=== PATIENT | female | born 1980 | race Asian ===

== ENCOUNTER → 2016-07-17 | Outpatient (CLI) | payer BC | END | disposition home or self-care (01) | LOC: US 07-16 08:00 | DX: E04.9 Nontoxic goiter, unspecified (principal); E04.1 Nontoxic single thyroid nodule ==

== ENCOUNTER → 2016-10-11 | Outpatient (CLI) | payer BC | END | disposition home or self-care (01) | LOC: US 08:30 | DX: B18.1 Chronic viral hepatitis B without delta-agent (principal); R94.5 Abnormal results of liver function studies ==

== ENCOUNTER → 2017-01-14 | Outpatient (CLI) | payer OTHER ==
[2017-01-14 10:42] LABS: HEMOGLOBIN A1c 5.8 % (4.8-5.6)
[2017-01-14 10:52] LABS: ALBUMIN 4.1 gm/dl (3.1-4.5); ALKALINE PHOSPHATASE 93 U/L (45-117); BILIRUBIN, DIRECT < 0.1 mg/dL (0.0-0.2); BILIRUBIN, TOTAL 0.4 mg/dl (0.2-1.0); SGOT/AST 53 IU/L (3-35); SGPT/ALT 109 U/L (12-78); TOTAL PROTEIN 8.6 gm/dL (6.4-8.2)
[2017-01-15 08:12] LABS: HIV 1+2 AB + HIV1 P24 AG Non Reactive (Non Reactive)
[2017-01-15 16:12] LABS: AB TO HEPATITIS Be AG 006635 Negative (Negative)
[2017-01-15 18:05] LABS: LOG10 HBV 4.505 (.)
== END | disposition home or self-care (01) ==
LOC: LAB 09:20
PROVIDERS: Family Medicine
DX: B19.10 Unspecified viral hepatitis B without hepatic coma (principal); B18.1 Chronic viral hepatitis B without delta-agent; R73.9 Hyperglycemia, unspecified

== ENCOUNTER → 2017-06-05 | Outpatient (CLI) | payer OTHER ==
[2017-06-05 11:12] LABS: BASO % 0.4 % (0.0-1.0); EOS # 0.1 10*3/uL (0.0-0.4); EOS % 1.4 % (1.0-4.0); HEMATOCRIT 43.3 % (37.0-47.0); HEMOGLOBIN 14.7 g/dl (12.0-16.0); LYMPH # 2.3 10*3/uL (1.3-4.4); LYMPH % 46.3 % (27.0-41.0); MEAN CELL VOLUME 86.6 fl (81.0-99.0); MEAN CORPUSCULAR HGB 29.4 pg (27.0-31.0); MEAN CORPUSCULAR HGB CONC 33.9 g/dl (33.0-37.0); MEAN PLATELET VOLUME 10.1 fl (9.6-12.3); MONO # 0.4 10*3/uL (0.1-1.0); MONO % 8.5 % (3.0-9.0); NEUT # 2.2 10*3/uL (2.3-7.9); NEUT % 43.2 % (47.0-73.0); PLATELET COUNT AUTOMATED 306 10*3/uL (130-400); RED CELL DISTRI WIDTH 12.9 % (0-14.5); WHITE BLOOD COUNT 5.1 10*3/uL (4.8-10.8)
[2017-06-05 11:42] LABS: ALBUMIN 4.1 gm/dl (3.1-4.5); ALKALINE PHOSPHATASE 72 U/L (45-117); BUN 9 mg/dl (7-24); CHLORIDE 103 mmol/L (98-107); CREATININE 0.88 mg/dL (0.55-1.02); POTASSIUM 3.4 mmol/L (3.5-5.1); SGOT/AST 26 IU/L (3-35); SGPT/ALT 46 U/L (12-78); SODIUM 137 mmol/L (136-145); TOTAL PROTEIN 8.3 gm/dL (6.4-8.2)
[2017-06-06 06:12] LABS: HEPATITIS Be ANTIGEN 006619 Positive (Negative)
[2017-06-06 14:11] LABS: AB TO HEPATITIS Be AG 006635 Negative (Negative)
[2017-06-07 11:05] LABS: HBV LOG10 1.845 (.); HEPATITIS B QNT 70 IU/mL (.)
== END | disposition home or self-care (01) ==
LOC: LAB 10:33
PROVIDERS: Family Medicine
DX: B18.1 Chronic viral hepatitis B without delta-agent (principal)

== ENCOUNTER → 2017-12-26 | Outpatient (CLI) | payer OTHER ==
[2017-12-27 07:05] LABS: HEPATITIS B SURFACE AB 006395 Non Reactive (.)
[2017-12-27 17:09] LABS: RUBEOLA AB IGG 096560 >300.0 AU/mL (Immune >29.9)
[2018-01-01 04:03] LABS: MITOGEN VALUE >10.00 IU/mL (.); TB Ag MINUS NIL VALUE 0.01 IU/mL (.); TB Ag VALUE 0.04 IU/mL (.); TB GOLD Negative (Negative)
== END | disposition home or self-care (01) ==
LOC: LAB 08:21
PROVIDERS: Family Medicine
DX: Z02.1 Encounter for pre-employment examination (principal)